=== PATIENT | male | born 1965 | race Caucasian/White ===

== ENCOUNTER 2016-12-19 07:38 | Day surgery (SDC) | payer OTHER ==
[~2016-12-19] VITALS: Ht 180.3 cm; Wt 97.5 kg
[~2016-12-19 07:38] MED LIST: 0.9% Sodium Chloride 1,000 ML IV SCH; Sodium Chloride LOK Flush 10 mL Syringe IV PRN; fentaNYL-PF 50 mCg/mL 2 mL Inj IVPUSH PRN; no meds
[2016-12-19 08:16] VITALS: BP 133/86; PULSE 67; RESP 14; O2SAT 97
--- NOTE | 2016-12-19 08:59 | PCM.ENDCOL ---
Colonoscopy Date of Service: December 19, 2016 Physician Noé Boggs MD Pre Procedure Diagnosis: Screening Post Procedure Dx & Findings: Polypectomy hemorrhoids diverticula Procedure Colonoscopy PROCEDURE IN DETAIL: Prep adequate Withdrawal time 11 minutes After unremarkable rectal examination the Olympus video colonoscope was inserted patient's anal canal and was advanced to cecum. Landmarks were identified including the ileocecal valve and appendiceal orifice. Scope was withdrawn systematically. Visualized colonic mucosa showed healthy shiny mucosa with normal healthy-appearing vasculature. In the ascending colon, there was a 1 mm polyp which was removed completely using forceps. In the rectum there was a 1 mm polyp was also removed completely using forceps. Also in the rectum there was a 1 cm polyp was removed completely using hot snare. Patient had several small diverticula mostly in the sigmoid but isolated all the way into the ascending colon In the rectum retroflexion was done which showed hemorrhoids. Anal canal was inspected carefully on the way out and hemorrhoids noted. Impression Polyps 3 status post complete removal. Largest polyp was 1 cm. Diverticula Hemorrhoids Recommendation Repeat colonoscopy 3 years Diverticular diet Presedation Assessment Risks and Benefits Informed consent was obtained from the patient after all risks and benefits including but not limited to drug reaction, infection, pain, bleeding, perforation, as well as alternatives were discussed. Patient monitoring Continuous pulse oximetry, cardiac monitoring, blood pressure monitoring, IV access, and oxygen at 2L per nasal cannula. Periprocedural Fentanyl: Fentanyl 75mcg Incrementally Midazolam: Midazolam 3mg Incrementally Complications There were no periprocedural complications identified. Post Procedure Plan Post Procedure Recommendations 1. Restrict activities today. 2. Resume normal activities in the morning. 3. Resume medications. 4. Patient informed of normal post procedure side effects as bloating, drowsiness, blood streaking in the stool. 5. average risk CRCS. If colon polyps come back as: -Hyperplastic- can repeat colonoscopy in 10 years -Tubular adenoma- repeat colonoscopy in 5 years -Tubulovillous/villous adenoma- repeat colonoscopy in 3 years -If any dysplasia- return to clinic as soon as possible 6. Please don't hesitate to call me with any questions. Noé Boggs MD December 19, 2016 08:59
[2016-12-19 09:03] VITALS: BP 124/71; PULSE 65; RESP 14; O2SAT 96
[2016-12-19 09:20] VITALS: BP 117/69; PULSE 62; RESP 16; O2SAT 96
[2016-12-19 09:24] VITALS: BP 130/80; PULSE 66; RESP 16; O2SAT 96
--- NOTE | 2016-12-20 13:55 | PATH ---
SURGICAL PATHOLOGY Attending Physician:Noé Boggs M.D. CASE STATUS: Signed Out PATIENT NAME: JUSTINA ROCHE PID: [id number] : 1965 DATE COLLECTED:12/19/2016 16:27 SPECIMEN: 1: Colon, Biopsy 2: Colon, Biopsy CLINICAL HISTORY: RECTAL PAIN/POLYP 1. ASCENDING COLON POLYP X1 2. RECTAL POLYP X2 FINAL DIAGNOSIS: 1.ASCENDING COLON POLYP: SESSILE SERRATED ADENOMA. 2.RECTAL POLYPS: POLYPOID VILLOUS ADENOMA. SMALL COLON MUCOSAL FRAGMENT CONSISTENT WITH SMALL HYPERPLASTIC POLYP. ICD10 D12.2 GROSS DESCRIPTION: The specimen is received in two formalin filled containers labeled with the patient's name. 1). The specimen is sublabeled "ascending colon polyp" and consists of a 0.3 x 0.2 x 0.2 CM portion of tissue which is entirely submitted in cassette 1A. 2). The specimen is sublabeled "rectal polyps" and consists of 2 portions of tissue which aggregate to 0.7 x 0.7 x 0.6 CM. The smallest portion is entirely submitted. The largest portion is trisected and totally submitted in the same cassette. 12/19/2016 DAC MICRO DESCRIPTION: See diagnosis. ICD-9 CODES: CPT CODES: 1: 76543 2: 34654 Electronically Signed Out Prosper Tinoco MD [facility] Pathology [facility] [address], [place] [address] Technical component performed at [facility], [facility] [address], [place], [address]
== END 2016-12-19 23:59 | disposition home or self-care (01) ==
LOC: END 07:38
PROVIDERS: ATTEND Internal Medicine
DX: D12.2 Benign neoplasm of ascending colon (principal); D12.8 Benign neoplasm of rectum; K62.1 Rectal polyp; K57.30 Diverticulosis of large intestine without perforation or abscess without bleeding; K64.9 Unspecified hemorrhoids; K62.89 Other specified diseases of anus and rectum; K59.00 Constipation, unspecified
CPT/HCPCS: 45380; 45385; G0500; J7030